=== PATIENT | female | born 1960 | race Caucasian/White ===

== ENCOUNTER → 2020-12-28 | Outpatient (CLI) | payer BC ==
[~2020-12-28] MED LIST: CELEXA40 MG PO; FLEXERIL 1010 MG/TAB PO
== END ==
LOC: COL.RAD 10:26
DX: R91.1 Solitary pulmonary nodule (principal)

== ENCOUNTER → 2021-02-01 | Outpatient (CLI) | payer OTHER | LOC: COL.RAD 07:48 → COL.PUL 07:48 | DX: M54.5 Low back pain (principal); Z02.71 Encounter for disability determination ==